=== PATIENT | male | born 1955 | race Hispanic/Latino ===

== ENCOUNTER 2018-06-12 08:27 | Emergency (ER) | payer MEDICARE, SELFPAY ==
[2018-06-12 09:01] VITALS: BMI 24.4
[2018-06-12] MEDS ORDERED: Sodium Chloride 0.9% 1,000 ML IV STA (11:01)
--- NOTE | 2018-06-12 11:12 | ED PDOC ---
HPI: Psych/Substance Abuse Time Seen by Provider: 06/12/18 09:16 Chief Complaint (Nursing): Dizziness/Lightheaded History Per: Patient History/Exam Limitations: no limitations Onset/Duration Of Symptoms: Days Current Symptoms Are (Timing): Better Suicide/Self Injury Attempted (Context): None Additional Complaint(s): 63 year old homeless male returns to the ED after being discharged today morning. Patient reports to binge drinking for the past few days. His last drink was this morning after being discharged. Patient has cleaned himself and denies any other complaints currently. He is sleeping. PMD: no family provider Past Medical History Reviewed: Historical Data, Nursing Documentation, Vital Signs Vital Signs: Last Vital Signs Temp 98 F 06/12/18 09:01 Pulse 91 H 06/12/18 09:01 Resp 20 06/12/18 09:01 BP 137/84 06/12/18 09:01 Pulse Ox 98 06/12/18 09:01 - Medical History PMH: Anxiety, Depression, Diabetes, Pancreatitis Denies: Hepatitis, HIV, HTN, Chronic Kidney Disease, Seizures, Sexually Tra nsmitted Disease - Family History Family History: States: Unknown Family Hx - Social History Current smoker - smoking cessation education provided: Yes (Current Some Days Smoker) Alcohol: < 2 Drinks/Day Drugs: Denies - Immunization History Hx Tetanus Toxoid Vaccination: Yes Hx Influenza Vaccination: No Hx Pneumococcal Vaccination: No - Home Medications Home Medications: Ambulatory Orders Medication Instructions Recorded Pantoprazole [Protonix EC Tab] 40 mg PO DAILY #30 ect 03/08/18 metFORMIN [glucOPHAGE] 850 mg PO BID #60 tab 03/08/18 traZODone [Desyrel] 50 mg PO HS #30 tab 03/08/18 Mirtazapine [Remeron] 30 mg PO HS #30 tab 05/17/18 Sertraline [Zoloft] 100 mg PO DAILY #60 tab 05/17/18 metFORMIN [glucOPHAGE] 500 mg PO BID #60 tab 05/17/18 traZODone [Desyrel] 50 mg PO HS #30 tab 05/17/18 Mirtazapine [Remeron] 30 mg PO HS #30 tab 06/06/18 Sertraline [Zoloft] 100 mg PO DAILY #30 tab 06/06/18 metFORMIN [glucOPHAGE] 500 mg PO BID #60 tab 06/06/18 traZODone [Desyrel] 50 mg PO HS #30 tab 06/06/18 Polymyxin/Trimethoprim Sulfate 1 drop OS Q6 #1 bottle 06/11/18 [Polytrim Ophth Soln] - Allergies Allergies/Adverse Reactions: Allergies Allergy/AdvReac Type Severity Reaction Status Date / Time gabapentin Allergy RASH Verified 06/11/18 21:25 Review of Systems ROS Statement: Except As Marked, All Systems Reviewed And Found Negative Constitutional: Negative for: Fever Respiratory: Negative for: Cough, Shortness of Breath Gastrointestinal: Negative for: Abdominal Pain Physical Exam - Reviewed Nursing Documentation Reviewed: Yes Vital Signs Reviewed: Yes - Physical Exam Appears: Positive for: Well, Non-toxic, No Acute Distress Head Exam: Positive for: ATRAUMATIC, NORMAL INSPECTION, NORMOCEPHALIC Skin: Positive for: Normal Color, Warm, Dry. Negative for: Rash Eye Exam: Positive for: EOMI, Normal appearance, PERRL ENT: Positive for: Normal ENT Inspection Neck: Positive for: Normal, Painless ROM Cardiovascular/Chest: Positive for: Regular Rate, Rhythm. Negative for: Murmur Respiratory: Positive for: Normal Breath Sounds. Negative for: Decreased Breath Sounds, Respiratory Distress Gastrointestinal/Abdominal: Positive for: Normal Exam, Soft. Negative for: Tenderness Back: Positive for: Normal Inspection. Negative for: L CVA Tenderness, R CVA Tenderness Extremity: Positive for: Normal ROM. Negative for: Tenderness, Pedal Edema, Deformity Neurological/Psych: Positive for: Awake, Alert, Normal Tone, Oriented (x3) - ECG O2 Sat by Pulse Oximetry: 98 (RA) Pulse Ox Interpretation: Normal Medical Decision Making Medical Decision Making: Time: 110 Plan: EKG CMP CBC w/ differential Normal Saline 999 mls/hr Reevaluation 1117: Patient is stable for discharged. ----- Scribe Attestation: Documented by Gaurav Hemphill, acting as a scribe Eric Flaherty MD. Provider Scribe Attestation: All medical record entries made by the Scribe were at my direction and personally dictated by me. I have reviewed the chart and agree that the record accurately reflects my personal performance of the history, physical exam, medical decision making, and the department course for this patient. I have also personally directed, reviewed, and agree with the discharge instructions and disposition. Disposition - Clinical Impression Clinical Impression: Homeless, Conjunctivitis - Patient ED Disposition Is Patient to be Admitted: No - Disposition Disposition: Routine/Home Disposition Time: 11:17 Condition: STABLE Additional Instructions: follow up with outpatient follow up return to the ED with any worsening or concerning symptoms Instructions: Conjunctivitis ([place]) (DC) Forms: [employer] (Moroccan)
[2018-06-12 11:54] VITALS: BP 128/77; PULSE 88; RESP 16; TEMP 98.9; O2SAT 99
--- NOTE | 2018-06-12 21:19 | CARD ---
APPROVED REPORT Date of service: 06/12/2018 EKG Measurement Heart [id number] <Conclusion> Normal sinus rhythm Prolonged QT Abnormal ECG
== END 2018-06-12 11:57 | disposition home or self-care (01) ==
LOC: MERGE 08:27 → H.ER 08:27
DX: H10.9 Unspecified conjunctivitis (principal); Z59.0 Homelessness; E11.9 Type 2 diabetes mellitus without complications; F17.200 Nicotine dependence, unspecified, uncomplicated; Z86.59 Personal history of other mental and behavioral disorders; Z79.84 Long term (current) use of oral hypoglycemic drugs

== ENCOUNTER 2018-06-12 15:30 | Emergency (ER) | payer MEDICARE, SELFPAY ==
[2018-06-12 15:30] VITALS: BMI 24.4
[2018-06-12 15:34] VITALS: BP 135/87; PULSE 72; RESP 16; TEMP 96.8; O2SAT 97
--- NOTE | 2018-06-12 16:14 | ED PDOC ---
HPI: Psych/Substance Abuse Time Seen by Provider: 06/12/18 15:35 Chief Complaint (Nursing): Alcohol Ingestion Chief Complaint (Provider): Alcohol ingestion ED Caveat: Intoxicated History Per: Patient, EMS Additional Complaint(s): 63 year old male well known to the ED for alcohol abuse presents to the ED via [facility] for evaluation of alcohol intoxication. Patient was seen earlier today 2x times for the same complaint. Patient admits to drinking vodka since last night. Patient denies having any physical complaints. No reports of trauma. PMD: None provided Past Medical History Reviewed: Historical Data, Nursing Documentation, Vital Signs Vital Signs: Last Vital Signs Temp 96.8 F L 06/12/18 15:32 Pulse 72 06/12/18 15:32 Resp 16 06/12/18 15:32 BP 135/87 06/12/18 15:32 Pulse Ox 97 06/12/18 15:32 PAMELA Report Viewed: Yes - Medical History PMH: Anxiety, Depression, Diabetes, Pancreatitis - Surgical History Other surgeries: unknown - Family History Family History: States: Unknown Family Hx - Living Arrangements Living Arrangements: Other (homeless) - Social History Current smoker - smoking cessation education provided: Yes Alcohol: > 2 Drinks/Day - Home Medications Home Medications: Ambulatory Orders Medication Instructions Recorded Pantoprazole [Protonix EC Tab] 40 mg PO DAILY #30 ect 03/08/18 metFORMIN [glucOPHAGE] 850 mg PO BID #60 tab 03/08/18 traZODone [Desyrel] 50 mg PO HS #30 tab 03/08/18 Mirtazapine [Remeron] 30 mg PO HS #30 tab 05/17/18 Sertraline [Zoloft] 100 mg PO DAILY #60 tab 05/17/18 metFORMIN [glucOPHAGE] 500 mg PO BID #60 tab 05/17/18 traZODone [Desyrel] 50 mg PO HS #30 tab 05/17/18 Mirtazapine [Remeron] 30 mg PO HS #30 tab 06/06/18 Sertraline [Zoloft] 100 mg PO DAILY #30 tab 06/06/18 metFORMIN [glucOPHAGE] 500 mg PO BID #60 tab 06/06/18 traZODone [Desyrel] 50 mg PO HS #30 tab 06/06/18 Polymyxin/Trimethoprim Sulfate 1 drop OS Q6 #1 bottle 06/11/18 [Polytrim Ophth Soln] - Allergies Allergies/Adverse Reactions: Allergies Allergy/AdvReac Type Severity Reaction Status Date / Time gabapentin Allergy RASH Verified 06/12/18 22:42 Review of Systems ROS Statement: Except As Marked, All Systems Reviewed And Found Negative Physical Exam - Reviewed Nursing Documentation Reviewed: Yes Vital Signs Reviewed: Yes - Physical Exam Comments: GENERAL APPEARANCE: Patient is awake, alert, oriented x 3, in no acute distress; intoxicated, somnolent. (+) odor of alcohol, poor hygiene. SKIN: Warm, dry; (-) cyanosis ENMT: Mucous membranes moist. Airway patent: (-) stridor. NECK: Supple, FROM HEART AND CARDIOVASCULAR: (-) irregularity CHEST AND RESPIRATORY: (-) rales, (-) rhonchi, (-) wheezes; breath sounds equal. Respirations even and nonlabored. ABDOMEN: Soft, (-) distention, (-) tenderness, (-) guarding. NEURO AND PSYCH: Mental status as above. Pupils equal and reactive (-) facial asymmetry (+) slurred speech - ECG O2 Sat by Pulse Oximetry: 97 (RA) Pulse Ox Interpretation: Normal Medical Decision Making Medical Decision Makin:35 Clinical impression: 63 year old male with alcohol abuse with intoxication. Initial plan: * alcohol serum * glucose, blood, poc * reevaluation Accucheck: 145 1640 Patient sleeping comfortably in ED. No distress noted. 1755 Patient sleeping comfortably in ED. No distress noted. 1835 Patient now oriented x3 and ambulatory in ED with a steady gait. On re-evaluation, patient offers no complaints and is requesting discharge so that he can go to the correction before it closes. Lungs clear to auscultation, cardiac RRR, abdomen soft, non-tender, repeat neuro exam shows no focal findings. Vitals stable. Patient was observed in ED for 3+ hours with no evidence of clinical de terioration. Lab/Diagnostic results d/w the patient in great detail. Diagnosis of alcohol abuse with intoxication d/w the patient. Based on history, exam and diagnostic results, plan will be for outpatient follow up with clinic. Patient instructed to follow-up with pmd / referral provided / the clinic in 1- 2 days without fail. Return to the emergency room at any time for any new or worsening symptoms. Patient states he fully agrees with and understands discharge instructions. States that he agrees with the plan and disposition. Verbalized and repeated discharge instructions and plan. I have given the patient opportunity to ask any additional questions. ScribeAttestation: Documented byKisha Morejon, acting as a scribe for Kisha Narayanan Provider ScribeAttestation: All medical record entries made by the Scribe were at my direction and personally dictated by me. I have reviewed the chart and agree that the record accurately reflects my personal performance of the history, physical exam, medical decision making, and the department course for this patient. I have also personally directed, reviewed, and agree with the discharge instructions and disposition. Disposition - Clinical Impression Clinical Impression: Alcohol abuse with intoxication - Patient ED Disposition Is Patient to be Admitted: No Counseled Patient/Family Regarding: Studies Performed, Diagnosis, Need For Followup - Disposition Referrals: [facility] [Outside] Disposition: Routine/Home Disposition Time: 18:35 Condition: STABLE Additional Instructions: The emergency medical care you received today was directed at your acute symptoms. If you were prescribed any medication, please fill it and take as directed. It may take several days for your symptoms to resolve. Return to the Emergency Department if your symptoms worsen, do not improve, or if you have any other problems. Please contact your doctor in 2 days for re-evaluation and follow up / or call one of the physicians/clinics you have been referred to that are listed on the Patient Visit Information form that is included in your discharge packet. Bring any paperwork you were given at discharge with you along with any medications you are taking to your follow up visit. Our treatment cannot replace ongoing medical care by a primary care provider (PCP) outside of the emergency department. Instructions: Alcohol Use - When Is Drinking a Problem?, Alcohol Abuse and Alcoholism (DC), Effects of Alcohol on Your Health Forms: [employer] (Estonian) Print Language: SWEDISH - POA Present On Arrival: None Results - Lab Results Lab Results: 06/12/18 06/12/18 18:25 16:07 POC Glucose (mg/dL) 145 H Alcohol, Quantitative 292 H
== END 2018-06-12 18:35 | disposition home or self-care (01) ==
LOC: MERGE 15:30 → H.ER 15:30
DX: F10.129 Alcohol abuse with intoxication, unspecified (principal); E11.9 Type 2 diabetes mellitus without complications; F17.200 Nicotine dependence, unspecified, uncomplicated; Z86.59 Personal history of other mental and behavioral disorders; Z79.84 Long term (current) use of oral hypoglycemic drugs
CPT/HCPCS: 82948; 99282; G0480

== ENCOUNTER 2018-06-12 22:41 | Emergency (ER) | payer MEDICARE, SELFPAY ==
[2018-06-12 22:42] VITALS: BMI 24.4
[2018-06-12 22:45] VITALS: BP 144/68; PULSE 94; RESP 16; TEMP 98; O2SAT 98
--- NOTE | 2018-06-12 23:01 | ED PDOC ---
HPI: Psych/Substance Abuse Time Seen by Provider: 06/12/18 22:52 Chief Complaint (Nursing): Alcohol Ingestion History Per: Patient History/Exam Limitations: no limitations Onset/Duration Of Symptoms: Hrs Additional Complaint(s): Patient was brought in by EMS for being found intoxicated at the [facility] train station. Patient admits to drinking. Denies drugs or injuries. Past Medical History Reviewed: Historical Data, Nursing Documentation, Vital Signs Vital Signs: Last Vital Signs Temp 98.0 F 06/12/18 22:42 Pulse 94 H 06/12/18 22:42 Resp 16 06/12/18 22:42 BP 144/68 06/12/18 22:42 Pulse Ox 98 06/12/18 22:42 - Medical History PMH: Anxiety, Depression, Diabetes, Pancreatitis Denies: Hepatitis, HIV, HTN, Chronic Kidney Disease, Seizures, Sexually Transmitted Disease - Family History Family History: States: Unknown Family Hx - Immunization History Hx Tetanus Toxoid Vaccination: Yes Hx Influenza Vaccination: No Hx Pneumococcal Vaccination: No - Home Medications Home Medications: Ambulatory Orders Medication Instructions Recorded Pantoprazole [Protonix EC Tab] 40 mg PO DAILY #30 ect 03/08/18 metFORMIN [glucOPHAGE] 850 mg PO BID #60 tab 03/08/18 traZODone [Desyrel] 50 mg PO HS #30 tab 03/08/18 Mirtazapine [Remeron] 30 mg PO HS #30 tab 05/17/18 Sertraline [Zoloft] 100 mg PO DAILY #60 tab 05/17/18 metFORMIN [glucOPHAGE] 500 mg PO BID #60 tab 05/17/18 traZODone [Desyrel] 50 mg PO HS #30 tab 05/17/18 Mirtazapine [Remeron] 30 mg PO HS #30 tab 06/06/18 Sertraline [Zoloft] 100 mg PO DAILY #30 tab 06/06/18 metFORMIN [glucOPHAGE] 500 mg PO BID #60 tab 06/06/18 traZODone [Desyrel] 50 mg PO HS #30 tab 06/06/18 Polymyxin/Trimethoprim Sulfate 1 drop OS Q6 #1 bottle 06/11/18 [Polytrim Ophth Soln] - Allergies Allergies/Adverse Reactions: Allergies Allergy/AdvReac Type Severity Reaction Status Date / Time gabapentin Allergy RASH Verified 06/12/18 22:42 Review of Systems ROS Statement: Except As Marked, All Systems Reviewed And Found Negative Physical Exam - Reviewed Nursing Documentation Reviewed: Yes Vital Signs Reviewed: Yes - Physical Exam Appears: Positive for: Non-toxic, No Acute Distress. Negative for: Well (Disheveled) Head Exam: Positive for: ATRAUMATIC, NORMAL INSPECTION, NORMOCEPHALIC Skin: Positive for: Normal Color, Warm, DRY Eye Exam: Positive for: EOMI, Normal appearance, PERRL ENT: Positive for: Normal ENT Inspection Neck: Positive for: Normal, Painless ROM Cardiovascular/Chest: Positive for: Regular Rate, Rhythm Respiratory: Positive for: CNT, Normal Breath Sounds Gastrointestinal/Abdominal: Positive for: Normal Exam, Soft Back: Positive for: Normal Inspection Extremity: Positive for: Normal ROM Neurological/Psych: Positive for: Awake, Alert, Normal Tone, Gait (Normal), hand tool lapper II-XII. Negative for: Motor/Sensory Deficits, Facial Droop - ECG O2 Sat by Pulse Oximetry: 98 Medical Decision Making Medical Decision Making: Patient presenting with alcohol intoxication --Patient is alert, oriented, steady gait, walked to the bathroom and back steadily and without assistance --Patient denies suicidal or homicidal ideation Disposition - Clinical Impression Clinical Impression: Alcohol use - Patient ED Disposition Is Patient to be Admitted: No - Disposition Referrals: [facility] [Outside] Disposition: Routine/Home Disposition Time: 23:01 Condition: GOOD Instructions: Alcohol Use - When Is Drinking a Problem?
== END 2018-06-12 23:20 | disposition home or self-care (01) ==
LOC: H.ER 22:41 → MERGE 22:41 → H.ER 23:20
DX: F10.129 Alcohol abuse with intoxication, unspecified (principal); E11.9 Type 2 diabetes mellitus without complications; Z86.59 Personal history of other mental and behavioral disorders; Z79.84 Long term (current) use of oral hypoglycemic drugs